=== PATIENT | male | born 1975 | race Caucasian/White ===

== ENCOUNTER 2016-10-19 13:29 | Observation (INO) | payer OTHER ==
[~2016-10-19] VITALS: Ht 190.5 cm; Wt 127.5 kg
[2016-10-19] VITALS (10 sets, daily range): BP systolic 133–165; BP diastolic 56–91; PULSE 64–92; RESP 10–21; O2SAT 93–100
[~2016-10-19 13:29] MED LIST: Dexamethasone 4 mg/mL Inj ONE; Glycopyrrolate 0.2 mg/mL 5 mL Inj ONE; Lidocaine PF 1% 30 mL Inj ONE; Neostigmine 1 mg/mL 5 mL Inj ONE; Ondansetron 2 mg/mL 2 mL Inj ONE; Propofol 10,000 mCg/mL 20 mL Inj ONE; Rocuronium 10 mg/mL 5 mL Inj ONE; fentaNYL-PF 50 mCg/mL 2 mL Inj ONE
--- NOTE | 2016-10-19 14:10 | NUR ---
Admission Pt report received from urgent care RN. Nurse reported pt vs stable, pn 11/25. No pain medications had been given. Pt arrived to floor via wc. Steady gait. Ind in room. at bedside. Pain level is now a 01/25 since arriving. Called admit nurse to ask if she could do med rec. Addendum: 10/19/16 at 1549 by ERICKA HUNTER RN pain located RLQ. Addendum: 10/19/16 at 1725 by ERICKA HUNTER RN Pain Pt pain has been increasing. Given 0.5 mg Dilaudid.
[2016-10-19] MEDS ORDERED: Ondansetron 2 mg/mL 2 mL Inj IVPUSH PRN ×2 (15:45→20:05)
[2016-10-19] MEDS ORDERED: HYDROmorphone 0.5 mg/0.5 mL iSecure Syringe IV PRN (15:45)
[2016-10-19] MEDS ORDERED: Ampicillin-Sulbactam Inj 3,000 MG in 0.9% Sodium Chloride 100 ML IV ONE (15:45)
--- NOTE | 2016-10-19 16:03 | HP ---
[address] [address] HISTORY AND PHYSICAL PATIENT: DREAD HOGUE : 1975 MR#: [id number] ADMIT: 10/19/2016 JOB ID: [id number] CHIEF COMPLAINT/IDENTIFICATION: This is a 40-year-old man admitted through Urgent Care with probable appendicitis. HISTORY OF PRESENT ILLNESS: The patient had onset of abdominal pain within the past 24 hours, localized to the right lower quadrant. No nausea, vomiting, or diarrhea. He presents to Urgent Care, where CAT scan is suggestive of appendicitis. PAST MEDICAL HISTORY: Paroxysmal atrial fibrillation. MEDICATIONS: 1. Metoprolol. 2. PRN Rythmol. ALLERGIES: No known drug allergies. SOCIAL HISTORY: , negative cigarette smoking. Drinks 1-2 drinks many days but not every day. Seen with his . FAMILY HISTORY: Noncontributory. REVIEW OF SYSTEMS: Negative except for his paroxysmal atrial fibrillation. PHYSICAL EXAMINATION: Big man, mildly overweight. BMI is 35. He is in no acute distress. Vital signs are recorded in the chart. Lungs are clear. Heart sounds are regular. He has mild right lower quadrant tenderness to palpation. LABORATORIES: Labs were done over at urgent care, and I am told they are all negative including normal white blood cell count. CAT scan: I have seen the images as well as the report and I concur that this is most consistent with appendicitis including presence of an appendicolith. IMPRESSION AND PLAN: A 40-year-old man, relatively healthy though he does have a history of paroxysmal atrial fibrillation and is on chronic metoprolol, p.r.n. Rythmol, now with probable appendicitis. I have recommended laparoscopic appendectomy. We have discussed risks and benefits and possible complications of surgery including possibility of negative appendectomy. We will plan to put him on a monitored bed on the first floor after surgery just in case the stress of surgery brings out his arrhythmia.
[2016-10-19] MEDS ORDERED: OMEG-38 PO (16:49)
[2016-10-19] MEDS ORDERED: RYTHMOL PO (16:49)
[2016-10-19] MEDS ORDERED: METO25TA3 PO (16:49)
[2016-10-19] MEDS ORDERED: SIMV10TA4 PO (16:49)
[2016-10-19] MEDS ORDERED: ASPI325T32 PO (16:49)
[2016-10-19] MEDS ORDERED: GLUC1CAP69 PO (16:49)
[2016-10-19] MEDS ORDERED: LISI10TA PO (16:49)
[2016-10-19] MEDS ORDERED: SAW/1TAB2 PO (16:49)
[2016-10-19] MEDS ORDERED: IBUP200C11 PO (16:49)
[2016-10-19] MEDS ORDERED: DIPH25CA6 PO (16:49)
[2016-10-19] MEDS ORDERED: HYDROmorphone 1 mg/mL Inj IV PRN (18:35)
--- NOTE | 2016-10-19 19:16 | NUR ---
Preop patient up ind voided VS done s/o @ bedside to go to room 1018 post op Addendum: 10/19/16 at 1938 by JUANITO BECERRIL RN 19:36 off floor to procedure quick bedside report to Chivo
[2016-10-19] MEDS ORDERED: Lactated Ringer's 1,000 ML IV ONE (19:49)
[2016-10-19] MEDS ORDERED: Lactated Ringer's 500 ML IV PRN (20:01)
[2016-10-19] MEDS ORDERED: Lactated Ringer's 1,000 ML IV SCH (20:01)
[2016-10-19] MEDS ORDERED: MetoCLOpramide 5 mg/mL 2 mL Inj IVPUSH PRN (20:05)
[2016-10-19] MEDS ORDERED: Dexamethasone 4 mg/mL Inj IVPUSH PRN (20:05)
[2016-10-19] MEDS ORDERED: EPHEDrine Sulfate 50 mg/mL Inj IVPUSH PRN (20:05)
[2016-10-19] MEDS ORDERED: Phenylephrine 10,000 mCg/mL Inj IVPUSH PRN (20:05)
[2016-10-19] MEDS ORDERED: fentaNYL-PF 50 mCg/mL 2 mL Inj IVPUSH PRN (20:05)
[2016-10-19] MEDS ORDERED: HYDROmorphone 1 mg/mL Inj IVPUSH PRN (20:05)
--- NOTE | 2016-10-19 20:05 | PCM.HPANE ---
Patient Data Date of Service: Oct 19, 2016 (1944) Surgeon Admitting Provider:Alexandre Santos MD Attending Provider:Alexandre Santos MD Primary Care Physician:Alexandre Magdaleno DO Other Provider:Evgeny Delacruz Anesthesia Reason for Visit APPY Ht/WT & BMI Height (Feet): 6 Height (Inches): 3.00 Weight (Kilograms): 127.450 Body Mass Index 34.94 Allergies Coded Allergies: No Known Allergies (Verified Allergy, Unknown, 10/19/16) Past Anesthesia History Anesthesia History: Denies:: Anesthesia Reactions Diabetes History Hx Diabetes?: No MRSA MRSA: No Medications Hypertension Medication: No Home Meds Incl Beta Nupur: No Reported Medications Ibuprofen (Advil)200 Mg Rvshecu995 Mg PO PRN For Pain 10/19/16 Saw/Vit E/Sod Jennifer/Lyc/Beta/Pyg (Prostate Health Caplet)1 Each Tablet1 Each PO 10/19/16 Metoprolol Succinate ER (Toprol XL)25 Mg Jtdlrk50 Mg PO DAILY Ref 0 10/19/16 Simvastatin 10 Mg Vzvsxe29 Mg PO HS Ref 0 10/19/16 [rythmol] No Conflict Avgxs710 Mg PO PRN a-fib 10/19/16 Lisinopril 10 Mg Otiryc49 Mg PO DAILY 30 Days Ref 0 10/19/16 Glucosamine/Chondroitin A/MSM (Vqtgxcavboh-Vrvcwpemm-TCP Cap)1 Each Capsule2 Tablet PO 10/19/16 [place]-3/Dha/Epa/Fish Oil (Fish Oil 1,000 mg Softgel)1 Each Capsule2 Each PO 10/19/16 diphenhydrAMINE HCl (Benadryl)25 Mg Aocerve57 Mg PO HS PRN Ref 0 10/19/16 Aspirin 325 Mg Ykcfxh127 Mg PO #1 BOTTLE 10/19/16 History History of ENT Problems?: No Cardiovascular History: Positive for:: Hypertension Irregular Heartbeat (Afib infrequent and self limited) Denies:: Cardiac Surgery Chest Pain Congestive Heart Failure Edema Heart Murmur Pacemaker Thrombophlebitis Hx of Respiratory Problem?: No Hx Neurologic Problems?: No Hx of GI Problems?: Yes Gastrointestinal History: Positive for:: Gastroesphageal Reflux Heartburn Denies:: Diverticulitis Gastrointestinal Bleeding Hepatitis Hiatal Hernia Rectal Bleeding Hx of Problems?: Yes Genitourinary History: Positive for:: Urinary Tract Infection Denies:: HX of Hemodialysis Kidney Stones HX of Peritoneal Dialysis: No Male Hx: Denies:: Prostate Problems Scrotal Mass Testicular Surgery Hx Musculoskeletal Problems?: Yes Musculoskeletal History: Positive for:: Back Injury Denies:: Joint Replacement Musculoskeletal Trauma Hx of Psycho/Social Problems?: Yes Psycho Social History: Positive for:: Anxiety Denies:: Bipolar Disorder Hx Depression Suicide Attempt Hx Surgeries?: Yes (Vasectomy) Hx Any Other Health Problems?: No Other History: Denies:: Cancer Hospitalization Thyroid Disease History Blood Transfusions: Positive for:: Accept Blood Products? Denies:: Blood Transfuse Reaction Blood Transfusions Hx Diabetes: No Hx Alcohol Use: YesAlcoholic Drinks Per Day: 1-2 per dayHx Substance Use: No Have You Smoked inLast 12 mo: No Stop/Bang Treated for Sleep Apnea?: No Do You Have a CPAP Machine?: No S-Snoring: Do You Snore Loudly: No T-Tired: feel tired, fatigued: No O-Obsered: Observed not breath: No P-Blood Pressure: treated: Yes B- Body Mass Index > 35 kg/m2: No A- Age over 50: No N- Neck Large Circumference: No G- Gender Male: Yes JOHANNA Total Score: 2 JOHANNA Risk Assessment: Low Risk, <3 Yes Risk Assessment Category Category 1A: Patient has history of documented sleep apnea, and HAS NOT received any narcotic, sedative or anesthesia administration during this stay. Category 1B: Patient has history of documented sleep apnea, and HAS received any narcotic , sedative or anesthesia administration during this stay Category 2: Patient has SUSPECTED Obstructive Sleep Apnea, and HAS received any narcotic , sedative or anesthesia administration during this stay. Category 3: Patient has SUSPECTED Obstructive Sleep Apnea and HAS NOT received narcotic, sedative or anesthesia administration during this stay. Category 4: Outpatient in Procedural Areas with known sleep apnea or who screen positive for High Risk via the STOP/BANG questionnaire. Exam Exam Vital Signs Vital Signs Date Time Temp Pulse Resp B/P Pulse Ox O2 Delivery O2 Flow Rate FiO2 10/19/16 19:13 37.2 83 20 159/79 98 Room Air 10/19/16 16:30 37.1 70 16 133/75 100 Room Air 10/19/16 15:00 64 16 99 Room Air General Appearance: Alert, Oriented X3, Cooperative HEENT/AIRWAY: MP 1 Lungs: Clear to Auscultation Heart: Exam Unremarkable Plan Impression Patient chart reviewed, patient interviewed and anesthestic plan with risks, benefits, and alternatives discussed, and informed consent obtained. NPO Status: >8hrs ASA Physical Status: ASA2 Mod Systemic Disease Anesthetic Plan: GA Bene/Risks/Altern/Consents: Yes HP Complete Prior to Induction: Yes Jose Simmons MD Oct 19, 2016 20:05
[2016-10-19] MEDS ORDERED: Bupivacaine-MPF 0.5% W/EPI 30 mL Inj INFILTRATE ONE (20:18)
--- NOTE | 2016-10-19 20:38 | PCM.ANEP1 ---
Post Anesthesia Phase 1 PACU Phase 1 Assessment Date of Service: Oct 19, 2016 (1944) Vital Signs 37.0, 159/91, 104, 20, 97% Vital Signs Date Time Temp Pulse Resp B/P Pulse Ox O2 Delivery O2 Flow Rate FiO2 10/19/16 19:13 37.2 83 20 159/79 98 Room Air 10/19/16 16:30 37.1 70 16 133/75 100 Room Air 10/19/16 15:00 64 16 99 Room Air Anesthetic Administered: GA Level of Alertness: Awake, talking LIRA's with Equal Strength: Yes Pain: No Pain Scale Score: 0 Nausea or Vomiting: No Oxygen Delivery: Simple Mask Lungs: Clear to Auscultation Dermatome Level: Full Sensation Summary uneventful Jose Merida MD Oct 19, 2016 20:38
--- NOTE | 2016-10-19 20:38 | PCM.ANEP2 ---
Post Anesthesia Evaluation ASA/CMS Post Anesthesia VS in Patient's Normal Range?: Yes Resp Stable; Airway Patent?: Yes CV Function & Hydration Stable: Yes Mental Status Recovered?: Yes Pain control Satisfactory?: Yes N/V Control Satisfactory?: Yes Jose Simmons MD Oct 19, 2016 20:38
[2016-10-19] MEDS ORDERED: Acetaminophen IV 1,000 MG in IV Premix 1 EACH IV PRN (20:45)
[2016-10-19] MEDS ORDERED: Polyethylene Glycol (PEG) 17 Gm Powder PO ONE (20:45)
[2016-10-19] MEDS ORDERED: diphenhydrAMINE 25 mg Capsule PO PRN (20:45)
--- NOTE | 2016-10-19 21:21 | NUR ---
Returned floor s/p bhupendra schneider, 3 stab sites c/d/i, currently no c/o Addendum: 10/20/16 at 0538 by JUANITO BECERRIL RN No pain/nausea through night up ind took walk
[2016-10-20 01:11] VITALS: BP 124/76; PULSE 78; RESP 18; O2SAT 95
--- NOTE | 2016-10-20 04:39 | OP ---
[address] [address] OPERATIVE REPORT PATIENT: DREAD HOGUE : 1975 MR#: [id number] ADMIT: 10/19/2016 JOB ID: [id number] DATE OF SURGERY: 10/19/2016 PREOPERATIVE DIAGNOSIS(ES): Appendicitis. POSTOPERATIVE DIAGNOSIS(ES): Appendicitis. PROCEDURE: Laparoscopic appendectomy. SURGEON: Alexandre Santos MD INDICATIONS: A 40-year-old man with signs and symptoms consistent with appendicitis. FINDINGS: Acute nonperforated appendicitis. DESCRIPTION OF PROCEDURE: The patient was brought to the operating room. SCOAP protocol was followed. Surgical time-out was performed. He received perioperative Unasyn. We began with gaining access using an optical trocar in the periumbilical position. Abdomen was insufflated. The patient had central obesity. We placed two additional ports in the standard position. The patient was tilted head-down and to the left, and we could see his appendix. We elevated the appendix, took the mesoappendix with a single firing of the endoscopic stapler and then took the appendix at its base with a 2nd fire. The specimen was removed in a bag without wound contamination. We performed appropriate irrigation. Hemostasis was good. Staple lines were intact. We suctioned out all of our irrigant. We let our CO2 out and removed our ports. The 12 mm port was closed at the fascial level with 0 Vicryl, followed by subcuticular Monocryl. The patient tolerated the procedure well. He will be placed on telemetry due to his history of paroxysmal atrial fibrillation.
[2016-10-20 05:51] VITALS: PULSE 76
[2016-10-20 06:02] VITALS: BP 124/75; PULSE 84; RESP 18; O2SAT 96
[2016-10-20 09:47] VITALS: PULSE 84
--- NOTE | 2016-10-20 10:18 | PCM.DISURG ---
Surgical Discharge Instruction Date of Service Oct 20, 2016 Dates of Hospitalization Date of Hospital Admission Oct 19, 2016 at 14:13 Providers Admitting Physician: Alexandre Santos MD Primary Care Physician: Alexandre Magdaleno DO Attending Physician: Alexandre Santos MD Discharge Diagnosis Discharge Diagnosis appendicitis Post Operative diagnosis laparoscopic appendectomy Activity Discharge Activity-General: Try not to overdue, No lifting >15 pounds for 2 weeks, No driving while taking narcotic, Other (return to work per energy and comfort level) Dressing and Incisional Care Dressing Care: Allow Steri Stripes to fall off, Remove outer dressing after 24 hrs Hygiene: May shower Follow Up Plan Follow Up Plan 1-2 weeks with [facility] Call your provider for: Fever, Chills, Shortness of breath, Wound redness, Increasing wound pain Alexandre Santos MD Oct 20, 2016 10:18
[2016-10-20] MEDS ORDERED: OXYC5TAB72 PO (10:20)
--- NOTE | 2016-10-20 11:15 | NUR ---
Discharge Patient left floor via wheelchair at 1120 to be driven home by . All 3 lap site dressings changed prior to d/c per surgeon instructions. Discharge information discussed and understood by patient including follow up appointment, medications, and home care instructions. IV d/c'd intact. All belongings left with patient.
--- NOTE | 2016-10-20 20:29 | DIS ---
[address] [address] DISCHARGE SUMMARY PATIENT: DREAD HOGUE : 1975 MR#: [id number] ADMIT: 10/19/2016 JOB ID: [id number] DIS: 10/20/2016 DISCHARGE DIAGNOSES: 1. Appendicitis. 2. Paroxysmal atrial fibrillation. HOSPITAL COURSE: This is a 40-year-old man who underwent a laparoscopic appendectomy for acute appendicitis. He did well and will be discharged on postop day number one with p.o. oxycodone for pain. He will resume all of his previous medications. He will follow up with the [facility] in one week. On the morning of discharge, he was afebrile, tolerating p.o. His incisions were intact with some staining of the edges.
--- NOTE | 2016-10-24 13:02 | PATH ---
SURGICAL PATHOLOGY Attending Physician:Alexandre Santos MD CASE STATUS: Signed Out PATIENT NAME: DREAD HOGUE PID: [id number] : 1975 DATE COLLECTED:10/19/2016 00:00 SPECIMEN: Appendix CLINICAL HISTORY: POSSIBLE APPENDICITIS 1).APPENDIX FINAL DIAGNOSIS: 1.APPENDIX: DIFFUSE ACUTE APPENDICITIS, FOCALLY NECROTIZING. ICD10 CODE K35.80 GROSS DESCRIPTION: The specimen is received in formalin, labeled with the patient's name, sublabeled as appendix, and consists of an intact appendix (length-5.5 cm, diameter-0.8 cm) with attached mesoappendix (up to 1.2 cm in depth). The resection margin is received stapled. The serosa is pale white smooth and shiny and partially covered in pale white flaky friable exudate. The lumen contains brown solid firm material. The wall is up to 0.3 cm thick. As identified within the tip. No nodules, masses or lesions are identified. Ink code: black-proximal. Section code: (A) appendix, financial foundations representative. 10/23/16 MICRO DESCRIPTION: See diagnosis. ICD-9 CODES: CPT CODES: 1: 25394 Electronically Signed Out Jorje Cao MD [facility] [address], [place] [address] Technical component performed at [facility], [facility] [address], [place], [address]
== END 2016-10-20 11:20 | disposition home or self-care (01) ==
LOC: INTOOBSV 14:13 → MOC 14:13
PROVIDERS: ADMIT Surgery; ATTEND Surgery
DX: K35.80 Unspecified acute appendicitis (principal); I48.0 Paroxysmal atrial fibrillation; E66.3 Overweight; Z68.35 Body mass index [BMI] 35.0-35.9, adult
CPT/HCPCS: 44970; 94640; 96374; 96375; 96376; G0378; G0379; J0131; J0295; J1100; J1170; J2175; J2250; J2405; J2710; J3010; J7120